=== PATIENT | female | born 1935 | race Caucasian/White ===

== ENCOUNTER → 2016-10-01 | Outpatient (CLI) | payer MEDICARE, OTHER ==
[~2016-10-01] MED LIST: CEFTIN500 MG PO; COREG12.5 MG PO; ELIQUIS5 MG PO; NAPROSYN500 MG PO; VITAMIN D 11000 UNIT PO; [UNRECOGNIZED DRUG - OTHER] PO
== END ==
LOC: RAD 10:02
DX: M15.8 Other polyosteoarthritis (principal); M51.06 Intervertebral disc disorders with myelopathy, lumbar region; M51.37 Other intervertebral disc degeneration, lumbosacral region; M47.816 Spondylosis without myelopathy or radiculopathy, lumbar region
CPT/HCPCS: 72110; 73522

== ENCOUNTER → 2021-09-22 | Outpatient (CLI) | payer MEDICARE, OTHER | LOC: KOH-I 13:57 | DX: G44.59 Other complicated headache syndrome (principal) | CPT/HCPCS: 70450 ==

== ENCOUNTER → 2022-01-26 | Outpatient (CLI) | payer MEDICARE, OTHER | LOC: CT 14:15 | DX: G70.00 Myasthenia gravis without (acute) exacerbation (principal); R91.1 Solitary pulmonary nodule; Z00.00 Encounter for general adult medical examination without abnormal findings | CPT/HCPCS: 36415; 71270; 82565; 84520; Q9967 ==